=== PATIENT | female | born 1950 | race Caucasian/White ===

== ENCOUNTER 2017-07-11 12:11 | Inpatient (IN) | payer MEDICARE, OTHER ==
[~2017-07-11] VITALS: Ht 152.4 cm; Wt 54.4 kg
[~2017-07-11 12:11] MED LIST: KLONOPIN0.5 MG ORAL; NORCO 10/3251 EA ORAL; PRILOSEC20 MG ORAL
[2017-07-11] MEDS: clonazePAM 0.5mg tab ORAL SCH (18:00)
[2017-07-11 20:00] VITALS: BP 120/82
[2017-07-11] MEDS: Norco 10mg/325mg tab ORAL PRN (21:09)
[2017-07-12] VITALS (7 sets, daily range): BP systolic 120–144; BP diastolic 68–92
[2017-07-12] MEDS: Hydromorphone 0.5mg/0.5ml inj IVP PRN ×3 (02:00→22:00)
[2017-07-12] MEDS: Norco 10mg/325mg tab ORAL PRN ×3 (03:27→19:11)
[2017-07-12] MEDS: clonazePAM 0.5mg tab ORAL SCH ×2 (09:31→18:08)
--- NOTE | 2017-07-12 11:48 | Diagnostic Imaging Report ---
Indication: TRAUMA Technique: Noncontrast spiral acquisitions obtained through the right tibia and fibula Multiplanar reconstructions were generated. Total dose length product 727 mGycm. CTDIvol(s) 15 mGy. Radiation dose was minimized using automated exposure control Comparison: None Findings: There is a nondisplaced fracture of the fibular head and neck. This is only appreciable on the coronal and sagittal reconstructed images. There is no evidence of tibial fracture demonstrated. There is some soft tissue swelling of the subcutaneous fat anteriorly, medially, and laterally along the course of the right leg. No focal fluid collections are evident. There is fairly extensive degenerative proliferative change of the knee joint. No joint space narrowing is demonstrated. No significant joint effusion is evident. Impression: Positive for nondisplaced proximal fibular fracture Minimal soft tissue swelling. Nonspecific, could be related to trauma or could be edema related to hemodynamic status Findings discussed by phone with Dr. Chan at the time of interpretation The CT scanner at [facility] is accredited by the [employer] and the scans are performed using protocols designed to limit radiation exposure to as low as reasonably achievable to attain images of sufficient resolution adequate for diagnostic evaluation.
[2017-07-13 00:35] VITALS: BP 138/73
[2017-07-13] MEDS: Norco 10mg/325mg tab ORAL PRN ×2 (04:26→10:28)
[2017-07-13 04:41] VITALS: BP 128/77
[2017-07-13] MEDS: Hydromorphone 0.5mg/0.5ml inj IVP PRN ×2 (07:00→18:45)
[2017-07-13 08:00] VITALS: BP 166/90
[2017-07-13] MEDS: clonazePAM 0.5mg tab ORAL SCH ×2 (08:57→17:20)
[2017-07-13] MEDS: Heparin 5000 units/ml inj SUBQ SCH ×3 (10:20→21:00)
[2017-07-13 12:00] VITALS: BP 174/96
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
[2017-07-13 16:00] VITALS: BP 162/96
[2017-07-13 20:00] VITALS: BP 156/88
[2017-07-14] MEDS: Hydromorphone 0.5mg/0.5ml inj IVP PRN ×2 (03:53→21:24)
[2017-07-14 04:00] VITALS: BP 145/76
[2017-07-14] MEDS: Norco 10mg/325mg tab ORAL PRN (06:20)
[2017-07-14 07:57] VITALS: BP 143/89
[2017-07-14] MEDS: clonazePAM 0.5mg tab ORAL SCH ×2 (08:38→17:29)
[2017-07-14] MEDS: Heparin 5000 units/ml inj SUBQ SCH ×2 (08:42→21:00)
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
[2017-07-14 12:00] VITALS: BP 148/87
[2017-07-14 16:00] VITALS: BP 151/81
[2017-07-14 20:00] VITALS: BP 141/91
[2017-07-15] VITALS: BP 145/86
[2017-07-15 04:00] VITALS: BP 142/83
[2017-07-15] MEDS: Hydromorphone 0.5mg/0.5ml inj IVP PRN (04:15)
[2017-07-15] MEDS: Norco 10mg/325mg tab ORAL PRN ×2 (07:47→12:56)
[2017-07-15] MEDS: Heparin 5000 units/ml inj SUBQ SCH (07:47)
[2017-07-15] MEDS: clonazePAM 0.5mg tab ORAL SCH (07:47)
[2017-07-15 07:50] VITALS: BP 147/87
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
[2017-07-15 09:56] LABS: BASOPHILS % (AUTO) 2.2 % (0.0-2.0); EOSINOPHILS % (AUTO) 5.2 % (0.0-3.0); HEMATOCRIT 35.7 % (37.0-47.0); HEMOGLOBIN 11.5 G/DL (12.0-16.0); MEAN CORPUSCULAR VOLUME 97 FL (80-99); MONOCYTES % (AUTO) 6.2 % (1.0-10.0); NEUTROPHILS % (AUTO) 68.5 % (45.0-75.0); PLATELET COUNT 233 K/UL (150-450); RED BLOOD COUNT 3.68 M/UL (4.20-5.40); RED CELL DISTRIBUTION WIDTH 12.1 % (11.6-14.8); WHITE BLOOD COUNT 6.6 K/UL (4.8-10.8)
[2017-07-15 10:23] LABS: ALANINE AMINOTRANSFERASE 30 U/L (12-78); ALBUMIN 3.5 G/DL (3.4-5.0); ALBUMIN/GLOBULIN RATIO 0.8 (1.0-2.7); ALKALINE PHOSPHATASE 88 U/L (46-116); ANION GAP 8 mmol/L (5-15); ASPARTATE AMINO TRANSFERASE 29 U/L (15-37); BILIRUBIN,TOTAL 0.7 MG/DL (0.2-1.0); BLOOD UREA NITROGEN 13 mg/dL (7-18); CALCIUM 9.3 MG/DL (8.5-10.1); CARBON DIOXIDE 30 MMOL/L (21-32); CHLORIDE 106 MMOL/L (98-107); CREATININE 0.9 MG/DL (0.55-1.30); SODIUM 144 MMOL/L (136-145)
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
[2017-07-15 12:45] VITALS: BP 150/87
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
--- NOTE | 2017-07-16 00:30 | Progress Note ---
DATE: 07/15/2017 CARDIOLOGY PROGRESS NOTE SUBJECTIVE: The patient received a Cam boot. Ambulation has been initiated. Headache is diminishing. She has less pain. OBJECTIVE: VITAL SIGNS: Blood pressure 147/87, pulse 78, respiratory rate 19, and afebrile. NECK: Supple. LUNGS: Clear. ABDOMEN: Soft. CARDIAC: Regular. Normal S1, S2. EXTREMITIES: Trace dependent edema. IMPRESSION: 1. Right fibular fracture. 2. Concussion. 3. Hypertension. PLAN: 1. Outpatient followup. 2. Monitor blood pressure and consider additional antihypertensive therapy if blood pressure remains elevated even with adequate pain control. 3. Discharge medication regimen reviewed with Dr. Chan. Franco Beasley M.D. DR: JEFF JOB#: [id number] CC:
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
== END 2017-07-15 13:02 | disposition home health service (06) | DRG 562 ==
LOC: 3E 18:12
DX: S82.201A Unspecified fracture of shaft of right tibia, initial encounter for closed fracture (principal); G92 Toxic encephalopathy; N30.10 Interstitial cystitis (chronic) without hematuria; F07.81 Postconcussional syndrome; K21.9 Gastro-esophageal reflux disease without esophagitis; D64.9 Anemia, unspecified; I10 Essential (primary) hypertension; T14.8XXA Other injury of unspecified body region, initial encounter; M17.11 Unilateral primary osteoarthritis, right knee; V09.9XXA Pedestrian injured in unspecified transport accident, initial encounter; Y92.410 Unspecified street and highway as the place of occurrence of the external cause; Y99.9 Unspecified external cause status
CPT/HCPCS: 36415; 80053; 83735; 84443; 85025

== ENCOUNTER 2017-09-22 11:21 | Inpatient (IN) | payer MEDICARE, OTHER ==
[~2017-09-22] VITALS: Ht 153 cm; Wt 54.4 kg
[2017-09-22 13:45] VITALS: BP 125/87
[2017-09-22] MEDS ORDERED: Norco 5mg/325mg tab ORAL PRN (13:45)
[2017-09-22] MEDS ORDERED: HYDROmorphone 1mg/ml Carpuject IVP PRN (13:45)
[2017-09-22 16:00] VITALS: BP 138/91
[2017-09-22] MEDS: clonazePAM 0.5mg tab ORAL SCH ×2 (16:12→20:19)
[2017-09-22] MEDS ORDERED: Hydromorphone 0.5mg/0.5ml inj IVP PRN (16:30)
[2017-09-22 20:00] VITALS: BP 127/82
[2017-09-22] MEDS: Heparin 5000 units/ml inj SUBQ SCH (20:34)
[2017-09-22] MEDS: HYDROcodone/Acetamin 7.5/325 tab ORAL PRN (22:43)
[2017-09-23] VITALS: BP 131/84
[2017-09-23 04:00] VITALS: BP 129/88
[2017-09-23] MEDS: HYDROcodone/Acetamin 7.5/325 tab ORAL PRN ×2 (04:13→13:18)
[2017-09-23 08:00] VITALS: BP 111/79
[2017-09-23] MEDS: clonazePAM 0.5mg tab ORAL SCH ×2 (09:06→20:37)
[2017-09-23] MEDS: Heparin 5000 units/ml inj SUBQ SCH ×2 (09:11→20:38)
--- NOTE | 2017-09-23 09:16 | Diagnostic Imaging Report ---
Indication: An Technique: XRAY Knee 1-2v R Comparison: Right leg CT 07/12/2017 Findings: There is a remote/healed fracture deformity of the proximal fibula. No acute fracture is identified. Degenerative change of the right knee manifested by joint space narrowing and tricompartmental osteophyte formation. These findings are most advanced at the medial femorotibial compartment. No suprapatellar knee joint effusion is appreciated. No radiopaque foreign body seen. Impression: No acute fracture or dislocation. Chronic fracture deformity of the proximal fibula. Moderate degenerative change of the knee most pronounced at the medial compartment.
--- NOTE | 2017-09-23 09:17 | Diagnostic Imaging Report ---
Indication: Pain Technique: XRAY Leg Lower Tib Fib 2v R Comparison: Right leg CT 07/12/2017. Findings: Chronic fracture deformity of the proximal fibula. No acute fracture identified. Degenerative change of the right knee partially visualized. The right ankle joint is grossly preserved. No focal soft tissue defect is appreciated. No radiopaque foreign body seen. Impression: No acute fracture or dislocation. Chronic fracture deformity of the right proximal fibula.
[2017-09-23 10:08] LABS: BASOPHILS % (AUTO) 2.3 % (0.0-2.0); EOSINOPHILS % (AUTO) 4.6 % (0.0-3.0); HEMATOCRIT 34.7 % (37.0-47.0); HEMOGLOBIN 11.2 G/DL (12.0-16.0); LYMPHOCYTES % (AUTO) 39.1 % (20.0-45.0); MEAN CORPUSCULAR VOLUME 95 FL (80-99); NEUTROPHILS % (AUTO) 46.1 % (45.0-75.0); PLATELET COUNT 229 K/UL (150-450); RED BLOOD COUNT 3.65 M/UL (4.20-5.40); RED CELL DISTRIBUTION WIDTH 11.7 % (11.6-14.8); WHITE BLOOD COUNT 5.4 K/UL (4.8-10.8)
[2017-09-23 10:41] LABS: % IRON SATURATION 13 % (15-50); IRON 41 ug/dL (50-175); TOTAL IRON BINDING CAPACITY 317 ug/dL (250-450)
[2017-09-23 10:46] LABS: ALANINE AMINOTRANSFERASE 15 U/L (12-78); ALBUMIN 3.4 G/DL (3.4-5.0); ALBUMIN/GLOBULIN RATIO 0.9 (1.0-2.7); ALKALINE PHOSPHATASE 65 U/L (46-116); ANION GAP 9 mmol/L (5-15); ASPARTATE AMINO TRANSFERASE 18 U/L (15-37); BILIRUBIN,TOTAL 0.4 MG/DL (0.2-1.0); BLOOD UREA NITROGEN 22 mg/dL (7-18); CALCIUM 8.9 MG/DL (8.5-10.1); CARBON DIOXIDE 28 MMOL/L (21-32); CHLORIDE 108 MMOL/L (98-107); CREATININE 0.8 MG/DL (0.55-1.30); POTASSIUM 3.5 MMOL/L (3.5-5.1); SODIUM 145 MMOL/L (136-145)
[2017-09-23 12:00] VITALS: BP 132/80
--- NOTE | 2017-09-23 12:18 | Diagnostic Imaging Report ---
Indication: Pain. Technique: Continuous helical CT scanning of the head was performed utilizing automated exposure control without intravenous contrast material. Axial and coronal reconstructions were obtained. Comparison: 02/07/2016 CT dose: Total DLP 1439.25 mGycm; CTDI vol 70.38 mGy Findings: There is no acute intracranial hemorrhage, mass effect, midline shift or cortical edema. Ventricles are normal in size and configuration. There is no depressed skull fracture. No focal soft tissue swelling/scalp hematoma is evident. The mastoid air cells and included paranasal sinuses are clear. Visualized portions of the orbits are grossly unremarkable. Impression: No evidence of acute intracranial hemorrhage, mass effect or cortical edema. MRI may be obtained for more sensitive evaluation as clinically indicated. The CT scanner at [facility] is accredited by the [employer] and the scans are performed using protocols designed to limit radiation exposure to as low as reasonably achievable to attain images of sufficient resolution adequate for diagnostic evaluation.
[2017-09-23 16:00] VITALS: BP 120/81
[2017-09-23 20:00] VITALS: BP 110/71
[2017-09-24] VITALS: BP 95/65
[2017-09-24 04:00] VITALS: BP 111/71
[2017-09-24 08:00] VITALS: BP 143/68
[2017-09-24] MEDS: clonazePAM 0.5mg tab ORAL SCH ×2 (08:51→21:09)
[2017-09-24] MEDS: Heparin 5000 units/ml inj SUBQ SCH ×2 (08:57→21:09)
--- NOTE | 2017-09-24 10:15 | Diagnostic Imaging Report ---
Indication: Neck pain Technique: MRI examination of the cervical spine was performed in a 1.5 Sherrie magnet. Sequences obtained include sagittal and axial T1 and T2 fast spin echo, and sagittal STIR. Comparison: none Findings: Bone marrow signal and alignment are normal. The intervertebral disc heights are mildly diminished. There is mild partial desiccation of the intervertebral discs within the cervical spine. There is no spinal stenosis demonstrated. No foraminal stenosis appreciated. The spinal cord appears normal. Area of the foramen magnum is unremarkable. No abnormal fluid collections or mass identified. IMPRESSION: Mild degenerative disc disease.
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
[2017-09-24 12:04] VITALS: BP 131/76
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
[2017-09-24] MEDS: HYDROcodone/Acetamin 7.5/325 tab ORAL PRN ×2 (15:19→19:14)
[2017-09-24 16:00] VITALS: BP 118/81
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
[2017-09-24 20:00] VITALS: BP 115/76
[2017-09-25 04:00] VITALS: BP 101/68
[2017-09-25 08:00] VITALS: BP 116/76
[2017-09-25] MEDS: clonazePAM 0.5mg tab ORAL SCH (08:38)
[2017-09-25] MEDS: Heparin 5000 units/ml inj SUBQ SCH (08:40)
[2017-09-25 12:00] VITALS: BP 118/73
[2017-09-25 16:00] VITALS: BP 120/79
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
== END 2017-09-25 16:29 | disposition home or self-care (01) | DRG 74 ==
LOC: 3E 11:26
DX: M54.12 Radiculopathy, cervical region (principal); I10 Essential (primary) hypertension; D64.9 Anemia, unspecified; M79.7 Fibromyalgia
CPT/HCPCS: 36415; 70450; 72141; 80053; 83540; 83550; 84443; 85025

== ENCOUNTER 2017-10-28 14:30 | Outpatient (RCR) | payer MEDICARE, OTHER | END 2017-11-06 | disposition home or self-care (01) | LOC: PTY 14:30 | DX: M50.10 Cervical disc disorder with radiculopathy, unspecified cervical region (principal); M51.16 Intervertebral disc disorders with radiculopathy, lumbar region | CPT/HCPCS: 97110; 97161; G8978; G8979 ==

== ENCOUNTER 2017-11-11 14:30 | Outpatient (RCR) | payer MEDICARE, OTHER ==
[2017-12-02] MEDS ORDERED: NORCO 10/3251 EA ORAL (15:41)
[2017-12-02] MEDS ORDERED: OMEPRAZOLE40 M1 ORAL (15:41)
== END 2017-12-07 | disposition home or self-care (01) ==
LOC: PTY 14:30
DX: M50.10 Cervical disc disorder with radiculopathy, unspecified cervical region (principal); M51.16 Intervertebral disc disorders with radiculopathy, lumbar region

== ENCOUNTER 2018-02-05 13:00 | Outpatient (RCR) | payer MEDICARE, OTHER ==
[~2018-02-05 13:00] MED LIST changes: +OMEPRAZOLE40 M1 ORAL
== END 2018-02-06 | disposition home or self-care (01) ==
LOC: PTY 13:00
DX: S22.008S Other fracture of unspecified thoracic vertebra, sequela (principal); M51.16 Intervertebral disc disorders with radiculopathy, lumbar region